=== PATIENT | female | born 1995 | race Two or more races ===

== ENCOUNTER 2016-09-18 16:45 | Emergency (ER) | payer BC ==
[2016-09-18 16:51] VITALS: BP 119/68; PULSE 84; TEMP 98.2; BMI 29.1
--- NOTE | 2016-09-18 18:28 | PDOC ---
History of Present Illness - General Chief Complaint: Abscess Boil Stated Complaint: PCP SENT/ABSCESS BOIL Time Seen by Provider: 09/18/16 17:37 History Source: Patient Exam Limitations: No Limitations - History of Present Illness Initial Comments: 09/18/16 18:26 Patient came to the emergency department to be seen by Dr. Hinton, plastic surgeon for evaluation and incision and drainage of left breast abscess. Past History - Past Medical History Allergies/Adverse Reactions: Allergies Allergy/AdvReac Type Severity Reaction Status Date / Time No Known Allergies Allergy Verified 09/18/16 16:51 Home Medications: Ambulatory Orders Amoxicillin - [Amoxicillin 875mg Tablet -] 875 mg PO BID 09/18/16 Sulfamethoxazole/Trimethoprim [Bactrim *Ds*] 1 each PO BID #10 tablet 09/18/16 Other medical history: PATIENT DENIES MEDICAL HISTORY - Immunization History Immunization Up to Date: Yes - Psycho/Social/Smoking Cessation Hx Anxiety: No Suicidal Ideation: No Smoking Status: No Smoking History: Current some day smoker Have you smoked in the past 12 months: Yes Number of Cigarettes Smoked Daily: 0 Information on smoking cessation initiated: No Hx Alcohol Use: Yes (OCCASIONALLY) Drug/Substance Use Hx: Yes Substance Use Type: Alcohol, Marijuana Review of Systems - Review of Systems Able to Perform ROS?: Yes Is the patient limited American proficient: Yes Constitutional: Yes: Symptoms Reported, See HPI, Malaise. No: Chills, Fever HEENTM: No: Symptoms Reported Respiratory: No: Symptoms reported Integumentary: Yes: Symptoms Reported, See HPI, Lesions (TENDER and edematous to the lateral aspect of left breast), Lumps *Physical Exam - Vital Signs Last Vital Signs Temp Pulse Resp BP Pulse Ox 98.2 F 84 16 119/68 97 09/18/16 16:47 09/18/16 16:47 09/18/16 16:47 09/18/16 16:47 09/18/16 16:47 - Physical Exam General Appearance: Yes: Appropriately Dressed, Apparent Distress HEENT: positive: RICKIE, Normal ENT Inspection, TMs Normal, Pharynx Normal Neck: positive: Tender, Supple. 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 Hinton performed incision and drainage to left breast wall. Patient started on Bactrim to add to Keflex already taking. Wound culture sent and patient understands will return to this emergency Department tomorrow for wound check and further instruction. Will follow-up with Dr. Hinton in his office on Thursday *DC/Admit/Observation/Transfer Diagnosis at time of Disposition: Abscess of breast - Discharge Dispostion Disposition: HOME Condition at time of disposition: Stable Admit: No - Prescriptions Prescriptions: Sulfamethoxazole/Trimethoprim [Bactrim *Ds*] 1 each PO BID #10 tablet - Referrals Referrals: Toi Hinton MD [Staff Physician] - - Patient Instructions Printed Discharge Instructions: DI for Incision and Drainage of a Skin Abscess Additional Instructions: Rest, keep area elevated. Avoid strenuous activity or exercise until wound is healed Use hot soaks to area to bring more blood to the surface and encourage drainage May change dressings as needed to keep clean - trying to avoid removal of packing for 2 days. If packing needs to be changed, return to emergency department or with your followup physician for wound care and evaluation and repacking as needed If packing needs to be removed, then in 2 days, while in the shower remove dressing and quickly pull the packing taken out. Allow water from shower to wash area thoroughly for 2-3 minutes, and pat dry upon exit of shower and replace dressing. Change his dressing daily until the wound is completely healed. May use Tylenol or Motrin for mild pain relief Use stronger medications as directed and prescribed Continue all medications as prescribed Followup with private physician in 2-3 days for wound check Return to emergency Department for worsening swelling, pain, redness, fevers as needed - Post Discharge Activity Work/School Note: Back to Work
[2016-09-18] MEDS ORDERED: SULFAMETHOXAZOLE/TRIMETHOPRIM 800MG/160MG D.S. TABLET ONE (18:49)
[2016-09-18] MEDS: SULFAMETHOXAZOLE/TRIMETHOPRIM 800MG/160MG D.S. TABLET PO ONE (18:50)
--- NOTE | 2016-09-18 18:51 | CONSULT ---
Consult Consult Specialty:: Plastic Surgery - Alcohol/Substance Use Hx Alcohol Use: Yes (OCCASIONALLY) - Smoking History Smoking history: Current some day smoker Have you smoked in the past 12 months: Yes Aproximately how many cigarettes per day: 0 Home Medications - Allergies Allergies/Adverse Reactions: Allergies Allergy/AdvReac Type Severity Reaction Status Date / Time No Known Allergies Allergy Verified 09/18/16 16:51 - Home Medications Home Medications: Ambulatory Orders Amoxicillin - [Amoxicillin 875mg Tablet -] 875 mg PO BID 09/18/16 Physical Exam Vital Signs: Vital Signs Temperature 98.2 F 09/18/16 16:47 Pulse Rate 84 09/18/16 16:47 Respiratory Rate 16 09/18/16 16:47 Blood Pressure 119/68 09/18/16 16:47 O2 Sat by Pulse Oximetry (%) 97 09/18/16 16:47 Assessment/Plan 21 year old woman with several day history of pain and redness left lateral breast. Ultrasound performed earlier today shows mass consistent with abscess [id number] size. Patient has nipple piercing but this mass is very lateral- unlikely that it is related. Area prepped and anesthetized with 1% plain lidocaine. Incision and drainage performed using #11 scalpel. Abscess very deep in breast- drained approximately 20-30cc purulent material. Culture sent. Wound irrigated and packed with 1/4" Iodoform packing. Sterile dressing applied. Bactrim prescribed. Patient will follow up in ER for packing change/removal tomorrow. She will follow-up in office Thursday.
== END 2016-09-18 18:59 | disposition home or self-care (01) ==
LOC: JERFT 16:45
PROC: 0H9U3ZZ Drainage of Left Breast, Percutaneous Approach (ICD-10-PCS; principal; 2016-09-18)
DX: N61.1 Abscess of the breast and nipple (principal)
CPT/HCPCS: 87070; 87205; 99281-25

== ENCOUNTER 2016-09-19 10:47 | Emergency (ER) | payer BC ==
[2016-09-19 10:51] VITALS: BP 130/66; PULSE 80; TEMP 98.4; BMI 29.1
--- NOTE | 2016-09-19 11:32 | PDOC ---
Suture Removal/Wound Check HPI - History of Present Illness Chief Complaint: Revisit,Wound Recheck Stated Complaint: PACKAGE REMOVAL Time Seen by Provider: 09/19/16 11:15 History Source: Yes: Patient Exam Limitations: Yes: No Limitations Treated at: [facility] ED - Previous ED Treatment Type of procedure performed on last visit: Yes: I&D of Abscess Tetanus Immunization: Yes: Up to Date Past History - Travel Traveled outside of the country in the last 30 days: No Close contact w/someone who was outside of country & ill: No - Past Medical History Allergies/Adverse Reactions: Allergies No Known Allergies Allergy (Verified 09/19/16 10:48) Home Medications: Ambulatory Orders Amoxicillin - [Amoxicillin 875mg Tablet -] 875 mg PO BID 09/18/16 Sulfamethoxazole/Trimethoprim [Bactrim *Ds*] 1 each PO BID #10 tablet 09/18/16 General: Yes: no pertinent history - Family History Significant Family History: Yes: no pertinent family hx - Reproductive History LMP: 08/09/11 - Immunization History Immunizations Up to Date: Yes - Social History Smoking History: No Smoking Status: Never smoked Number of Ciarettes Per Day: 0 Alcohol Use: none Drug Use: none Suture Removal/Wound Check PE - Physical Exam Laceration/Wound Check Symptoms: reports: Pain Current Severity Level: Mild Location of Laceration/Wound: left: Chest (approximately 3 cm with packing intact, has minimal drainage purulent) *Review of Systems - Review of Systems Able to Perform ROS?: Yes Constitutional: Yes: Symptoms Reported, See HPI, Malaise. No: Fever, Loss of Appetite HEENTM: No: Symptoms Reported Respiratory: No: Symptoms reported Integumentary: Yes: Symptoms Reported, See HPI, Lumps Neurological: No: Symptoms reported All Other Systems: Reviewed and Negative Medical Decision Making - Medical Decision Making 09/19/16 11:28 Patient here for wound check and possible treatment as didn't drained large left lateral breast abscess for large amount of purulent drainage and packing was placed. Patient states is [employer] however has no fever, no excessive drainage and has not changed the dressing. Is taking only antibiotics prescribed. 09/19/16 11:35 *DC/Admit/Observation/Transfer Diagnosis at time of Disposition: Wound check, abscess - Discharge Dispostion Disposition: HOME Condition at time of disposition: Stable Admit: No - Referrals Referrals: Toi Hinton MD [Staff Physician] - - Patient Instructions Printed Discharge Instructions: DI for Debridement of a Wound, Infection, or Burn Additional Instructions: Rest, keep area elevated. Avoid strenuous activity or exercise until wound is healed Use hot soaks to area to bring more blood to the surface and encourage drainage May change dressings as needed to keep clean - trying to avoid removal of packing for 2 days. If packing needs to be changed, return to emergency department or with your followup physician for wound care and evaluation and repacking as needed If packing needs to be removed, then in 2 days, while in the shower remove dressing and quickly pull the packing taken out. Allow water from shower to wash area thoroughly for 2-3 minutes, and pat dry upon exit of shower and replace dressing. Change his dressing daily until the wound is completely healed. May use Tylenol or Motrin for mild pain relief Use stronger medications as directed and prescribed Continue all medications as prescribed Followup with private physician in 2-3 days for wound check Return to emergency Department for worsening swelling, pain, redness, fevers as needed - Post Discharge Activity Work/School Note: Back to Work
== END 2016-09-19 11:53 | disposition home or self-care (01) ==
LOC: JERFT 10:47
DX: N61.1 Abscess of the breast and nipple (principal)
CPT/HCPCS: 99281-25